=== PATIENT | male | born 1990 | race African-American/Black ===

== ENCOUNTER 2018-07-01 12:07 | Emergency (ER) | payer SELFPAY ==
[~2018-07-01] VITALS: Ht 188 cm; Wt 97.1 kg
[2018-07-01] MEDS ORDERED: IBUPROFEN 600 MG TAB PO STA (13:10)
[2018-07-01] MEDS ORDERED: ALBUTEROL/IPRATROPIUM 3 ML NEB NEB ONE (13:15)
--- NOTE | 2018-07-01 14:30 | Diagnostic Imaging Report ---
EXAMINATION: PA and lateral views of the chest. COMPARISON: None CLINICAL HISTORY: Fever, cough, concern for pneumonia DISCUSSION: Lines/tubes: None. Lungs: The lungs are well inflated and clear. There is no evidence of pneumonia or pulmonary edema. Pleura: There is no pleural effusion or pneumothorax. Heart and mediastinum: The cardiomediastinal silhouette is normal. Bones and soft tissues: No acute bony abnormalities. IMPRESSION: No consolidative pneumonia. Signed by: Dr. Marcio Villafuerte M.D. on 07/01/2018 2:27 PM
[2018-07-01 14:43] LABS: STREPTOCOCCUS GRP A ANTIGEN NEGATIVE (NEGATIVE)
[2018-07-01 15:04] LABS: INFLUENZAE A&B ANTIGEN (RAPID) NEGATIVE (NEGATIVE)
[2018-07-01] MEDS ORDERED: AZITHROMYCIN250 MG PO (16:04)
== END 2018-07-01 16:39 | disposition home or self-care (01) ==
LOC: ER 12:07
DX: R50.9 Fever, unspecified (principal); R05 Cough; J02.9 Acute pharyngitis, unspecified
CPT/HCPCS: 71046; 83518; 87070; 87400; 94640; 99283